=== PATIENT | female | born 1985 | race Caucasian/White ===

== ENCOUNTER 2018-05-06 15:50 | Emergency (ER) | payer BC ==
[2018-05-06 16:03] VITALS: BP 137/81
--- NOTE | 2018-05-06 16:24 | EDM.PDOC ---
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 Is 8 weeks, 5 days according to dates per patient's report. Saw her OB, Dr. Valdez, and had 1st U/S on May 03. She felt a sudden gush of fluid and found it to be a large amount of bright red blood just prior to arrival. She immediately came to the ER for evaluation. 4, Para 2, Sp Ab 1, LC 2. ] Review of systems: As per history of present illness and below otherwise all systems reviewed and negative. Past medical history: As per history of present illness and as reviewed below otherwise noncontributory. Surgical history: As per history of present illness and as reviewed below otherwise noncontributory. Social history: No reported history of drug or alcohol abuse. Family history: As per history of present illness and as reviewed below otherwise noncontributory. Physical exam: HEENT: Atraumatic, normocephalic. Lungs: Clear to auscultation, breath sounds equal bilaterally. Heart: S1S2, regular.. Abdomen: Soft, nondistended, nontender. Genitourinary: Deferred. Rectal: Deferred. Extremities: Atraumatic, negative for cords or calf pain. Neurovascular unremarkable. Neuro: Awake, alert, oriented. Cranial nerves II through XII unremarkable. Cerebellum unremarkable. Motor and sensory unremarkable throughout. Exam nonfocal. Diagnostics: [CBC, qualitative Hcg, quantitative Hcg, ABO/RH, UA w/ microscopy, 1st trimester OB U/S] Impression: [Live intrauterine , approximately 8 weeks 3 days] Plan: [Ultrasound shows a single with heart rate of 181 bpm. Ultrasound age 8 weeks 3 days. 7 mm focal subchorionic hemorrhage is noted on ultrasound. Labs are consistent with an 8 week . Follow-up with obstetrics. Strict return precautions are reviewed with patient.] Definitive disposition and diagnosis as appropriate pending reevaluation and review of above. 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 ED EXAM - Physical Exam Exam: See Below Course - Vital Signs Last Recorded V/S: Last Vital Signs Temp 99.3 F 05/06/18 15:59 Pulse 80 05/06/18 15:59 Resp 18 05/06/18 15:59 BP 137/81 05/06/18 15:59 Pulse Ox 98 05/06/18 15:59 - Orders/Labs/Meds Orders: Active Orders 24 hr Category Date Time Status OB 1st Tri Sgl 1st Gest [US] Stat Exams 05/06/18 16:06 Taken UA W/MICROSCOPIC [URIN] Stat Lab 05/06/18 16:45 Ordered Labs: Laboratory Tests 05/06/18 05/06/18 05/06/18 Range/Units 16:21 16:21 16:21 WBC 9.87 (4.0-11.0) K/uL RBC 4.49 (4.30-5.90) M/uL Hgb 14.1 (12.0-16.0) g/dL Hct 38.0 (36.0-46.0) % MCV 84.6 (80.0-98.0) fL MCH 31.4 (27.0-32.0) pg MCHC 37.1 H (31.0-37.0) g/dL RDW Std Deviation 36.8 (28.0-62.0) fl RDW Coeff of Nanette 12 (11.0-15.0) % Plt Count 242 (150-400) K/uL MPV 8.90 (7.40-12.00) fL Neut % (Auto) 58.2 (48.0-80.0) % Lymph % (Auto) 33.5 (16.0-40.0) % [place] % (Auto) 6.5 (0.0-15.0) % Eos % (Auto) 1.5 (0.0-7.0) % Baso % (Auto) 0.3 (0.0-1.5) % Neut # (Auto) 5.7 (1.4-5.7) K/uL Lymph # (Auto) 3.3 H (0.6-2.4) K/uL [place] # (Auto) 0.6 (0.0-0.8) K/uL Eos # (Auto) 0.2 (0.0-0.7) K/uL Baso # (Auto) 0.0 (0.0-0.1) K/uL Nucleated RBC % 0.0 /100WBC Nucleated RBCs # 0 K/uL HCG, Quant 79302.0 mIU/mL Urine Color Urine Appearance Urine pH (5.0-8.0) Ur Specific [place] (1.001-1.035) Urine Protein (NEGATIVE) mg/dL Urine Glucose (UA) (NEGATIVE) mg/dL Urine Ketones (NEGATIVE) mg/dL Urine Occult Blood (NEGATIVE) Urine Nitrite (NEGATIVE) Urine Bilirubin (NEGATIVE) Urine Urobilinogen (<2.0) EU/dL Ur Leukocyte Esterase (NEGATIVE) Urine RBC (0-2/HPF) Urine WBC (0-5/HPF) Ur Epithelial Cells (NONE-FEW) Urine Bacteria (NEGATIVE) Blood Type A POSITIVE 05/06/18 Range/Units 16:45 WBC (4.0-11.0) K/uL RBC (4.30-5.90) M/uL Hgb (12.0-16.0) g/dL Hct (36.0-46.0) % MCV (80.0-98.0) fL MCH (27.0-32.0) pg MCHC (31.0-37.0) g/dL RDW Std Deviation (28.0-62.0) fl RDW Coeff of Nanette (11.0-15.0) % Plt Count (150-400) K/uL MPV (7.40-12.00) fL Neut % (Auto) (48.0-80.0) % Lymph % (Auto) (16.0-40.0) % [place] % (Auto) (0.0-15.0) % Eos % (Auto) (0.0-7.0) % Baso % (Auto) (0.0-1.5) % Neut # (Auto) (1.4-5.7) K/uL Lymph # (Auto) (0.6-2.4) K/uL [place] # (Auto) (0.0-0.8) K/uL Eos # (Auto) (0.0-0.7) K/uL Baso # (Auto) (0.0-0.1) K/uL Nucleated RBC % /100WBC Nucleated RBCs # K/uL HCG, Quant mIU/mL Urine Color YELLOW Urine Appearance CLEAR Urine pH 6.0 (5.0-8.0) Ur Specific [place] <= 1.005 (1.001-1.035) Urine Protein NEGATIVE (NEGATIVE) mg/dL Urine Glucose (UA) NEGATIVE (NEGATIVE) mg/dL Urine Ketones NEGATIVE (NEGATIVE) mg/dL Urine Occult Blood LARGE H (NEGATIVE) Urine Nitrite NEGATIVE (NEGATIVE) Urine Bilirubin NEGATIVE (NEGATIVE) Urine Urobilinogen 0.2 (<2.0) EU/dL Ur Leukocyte Esterase NEGATIVE (NEGATIVE) Urine RBC 2-5 (0-2/HPF) Urine WBC 0-1 (0-5/HPF) Ur Epithelial Cells FEW (NONE-FEW) Urine Bacteria FEW (NEGATIVE) Blood Type Departure - Departure Time of Disposition: 17:25 Disposition: Home, Self-Care 01 Condition: Good Clinical Impression: Vaginal bleeding during - Discharge Information Instructions: Vaginal Bleeding During , First Trimester Referrals: PCP,None [Primary Care Provider] - Forms: ED Department Discharge Additional Instructions: The following information is given to patients seen in the emergency department who are being discharged to home. This information is to outline your options for follow-up care. We provide all patients seen in our emergency department with a follow-up referral. The need for follow-up, as well as the timing and circumstances, are variable depending upon the specifics of your emergency department visit. If you don't have a primary care physician on staff, we will provide you with a referral. We always advise you to contact your personal physician following an emergency department visit to inform them of the circumstance of the visit and for follow-up with them and/or the need for any referrals to a consulting specialist. The emergency department will also refer you to a specialist when appropriate. This referral assures that you have the opportunity for follow-up care with a specialist. All of these measure are taken in an effort to provide you with optimal care, which includes your follow-up. Under all circumstances we always encourage you to contact your private physician who remains a resource for coordinating your care. When calling for follow-up care, please make the office aware that this follow-up is from your recent emergency room visit. If for any reason you are refused follow-up, please contact the [facility] emergency department at and asked to speak to the emergency department charge nurse. [facility] [address] [place] [id number] Follow-up with your nude model at the clinic stated above on Tuesday. Continue to monitor. Return to ER as needed as discussed. - My Orders Last 24 Hours: My Active Orders 05/06/18 16:06 OB 1st Tri Sgl 1st Gest [US] Stat 05/06/18 16:45 UA W/MICROSCOPIC [URIN] Stat - Assessment/Plan Last 24 Hours: My Active Orders 05/06/18 16:06 OB 1st Tri Sgl 1st Gest [US] Stat 05/06/18 16:45 UA W/MICROSCOPIC [URIN] Stat
--- NOTE | 2018-05-08 10:40 | US ---
EXAM DATE: 05/06/18 PATIENT'S AGE: 32 Patient: LINWOOD VARGHESE Facility: [facility] Site . Site : 1985 Study: US-OB Pelvis [id number]/[id number] 4:53:33 PM Ordering Physician: Doctor Orozco Final Report: INDICATION: Vaginal bleeding in early . TECHNIQUE: Endovaginal OB ultrasound. FINDINGS: A living intrauterine is identified. Average ultrasound age 8 weeks 3 days with JANI of 12/13/2018. heart rate 181 beats per minute. Yolk sac demonstrates a normal appearance. Small 7 mm focus of subchorionic hemorrhage is suggested adjacent to the gestational sac near the cervix. The left ovary was not visualized. The right ovary measures 1.8 x 1.8 x 2.9 cm and demonstrates no dominant cysts. IMPRESSION: 1. Living intrauterine Galarza with ultrasound age 8 weeks 3 days and JANI of 12/13/2018. 2. heart rate 181 beats per minute. 3. Tiny 7 mm focus of subchorionic hemorrhage is suggested at the lower uterine segment near the cervix. Dictated by Odell Galloway MD @ May 06 2018 5:00PM Signed by: Odell Galloway MD @05/06/2018 5:05:10 PM (Electronic Signature) Report Signed by Proxy. MTDD
== END 2018-05-06 17:32 | disposition home or self-care (01) ==
LOC: MW.ED 15:50
DX: O20.9 Hemorrhage in early pregnancy, unspecified (principal); Z3A.08 8 weeks gestation of pregnancy; Z79.899 Other long term (current) drug therapy
CPT/HCPCS: 36415; 76801; 76801-26; 81001; 84702; 85025; 86900; 86901; 99283; 99284-25

== ENCOUNTER 2018-12-05 05:14 | Inpatient (IN) | payer BC ==
[2018-12-05] MEDS ORDERED: Oxytocin/0.9 % Sodium Chloride 30 UNIT/500 ML BAG IV SCH (05:45)
[2018-12-05] MEDS ORDERED: Sodium Chloride 0.9% 10 ML Syringe FLUSH PRN (05:45)
[2018-12-05] MEDS ORDERED: Citric Acid/Sodium Citrate Solution 30 ML Cup PO ONE (05:45)
[2018-12-05] MEDS ORDERED: ceFAZolin 2 GM in Premix Bag 1 BAG IV ONE (05:45)
[2018-12-05] MEDS: Lactated Ringers 1,000 ML IV SCH ×6 (06:00→19:02)
--- NOTE | 2018-12-05 07:29 | PCM.PREANE ---
Preanesthetic Assessment - Anesthesia/Transfusion/Family Hx Anesthesia History: Prior Anesthesia Without Reaction (2 c sections (spinal and epidural), D+C under GA: No anesthesia issues) Family History of Anesthesia Reaction: No Transfusion History: No Prior Transfusion(s) - Review of Systems General: No Symptoms (98kg body weight) Pulmonary: No Symptoms (allergic rhinitis, controlled) Cardiovascular: No Symptoms Gastrointestinal: No Symptoms (mild gerd with ) Neurological: No Symptoms Other: Reports: None - Physical Assessment NPO Status Date: 12/05/18 NPO Status Time: 00:00 Pulse: 72 O2 Sat by Pulse Oximetry: 98 Respiratory Rate: 22 Blood Pressure: 110/58 Temperature: 98.2 C Height: 1.69 m Weight: 97.522 kg ASA Class: 2 Mental Status: Alert & Oriented x3 Airway Class: Mallampati = 1 Dentition: Reports: Normal Dentition Thyro-Mental Finger Breadths: 2 Mouth Opening Finger Breadths: 3 ROM/Head Extension: Full Lungs: Clear to Auscultation, Normal Respiratory Effort Cardiovascular: Regular Rate, Regular Rhythm, No Murmurs - Lab Values: Laboratory Last Values WBC 8.08 K/uL (4.0-11.0) 12/05/18 06:25 RBC 3.66 M/uL (4.30-5.90) L 12/05/18 06:25 Hgb 11.5 g/dL (12.0-16.0) L 12/05/18 06:25 Hct 32.8 % (36.0-46.0) L 12/05/18 06:25 MCV 89.6 fL (80.0-98.0) 12/05/18 06:25 MCH 31.4 pg (27.0-32.0) 12/05/18 06:25 MCHC 35.1 g/dL (31.0-37.0) 12/05/18 06:25 RDW Std Deviation 45.2 fl (28.0-62.0) 12/05/18 06:25 RDW Coeff of Nanette 14 % (11.0-15.0) 12/05/18 06:25 Plt Count 168 K/uL (150-400) 12/05/18 06:25 MPV 9.30 fL (7.40-12.00) 12/05/18 06:25 Nucleated RBC % 0.0 /100WBC 12/05/18 06:25 Nucleated RBCs # 0 K/uL 12/05/18 06:25 Blood Type A POSITIVE 12/05/18 06:25 Antibody Screen NEGATIVE 12/05/18 06:25 - Allergies Allergies/Adverse Reactions: Allergies Allergy/AdvReac Type Severity Reaction Status Date / Time No Known Allergies Allergy Verified 11/29/18 11:58 - Blood Blood Available: Yes Product(s) Available: PRBC - Anesthesia Plan Pre-Op Medication Ordered: Antacids (bicitra pre op) Med Last Dose Date: 12/05/18 Med Last Dose Time: 08:30 - Acknowledgements Anesthesia Type Planned: Spinal (spinal with GA backup. Discussed with patient and . All questions answered. 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 - Past Surgical History Head Surgeries/Procedures: Reports: None Female Surgical History: Reports: Section - SUBSTANCE USE Smoking Status *Q: Former Smoker Recreational Drug Use History: No - HOME MEDS Home Medications: Home Meds Calcium Carbonate [Tums] 1 tab.chew CHEW ASDIRECTED PRN 11/29/18 [History] Cetirizine HCl [Zyrtec] 1 tab PO DAILY 11/29/18 [History] Pnv with Ca,No.72/Iron/Fa [ Vitamin Plus Low Iron] 1 tab PO DAILY [History] - CURRENT (IN HOUSE) MEDS Current Meds: Current Medications Lactated Ringer's (Ringers, Lactated) 1,000 mls @ 500 mls/hr IV BOLUS CARLOS Last Admin: 12/05/18 06:51 Dose: 999 mls/hr Oxytocin/Sodium Chloride (Oxytocin 30 Unit/500 Ml-Ns) 30 unit in 500 mls @ 250 mls/hr IV TITRATE CARLOS Sodium Chloride (Saline Flush) 10 ml FLUSH ASDIRECTED PRN PRN Reason: Keep Vein Open Last Admin: 12/05/18 05:55 Dose: 10 ml Discontinued Medications Citric Acid/Sodium Citrate (Bicitra Solution) 30 ml PO ONETIME ONE Stop: 12/05/18 05:46 Cefazolin Sodium/Dextrose 2 gm (/ Premix) 50 mls @ 100 mls/hr IV ONETIME ONE Stop: 12/05/18 06:14
[2018-12-05] MEDS ORDERED: Oxytocin 10 Units/1 ML SDV ONE ×3 (07:42→07:43)
[2018-12-05] MEDS ORDERED: Phenylephrine/Normal Saline 100 MCG/ML 10 ML Syringe ONE (07:43)
[2018-12-05] MEDS ORDERED: Morphine PF 10 MG/10 ML SDV ONE (07:47)
[2018-12-05] MEDS ORDERED: Methylergonovine 0.2 MG/1 ML Amp ONE (07:51)
[2018-12-05] MEDS ORDERED: Octyl 2-Cyanoacrylate 1 Tube ONE (07:54)
[2018-12-05] MEDS ORDERED: Ondansetron 4 MG/2 ML SDV ONE (08:44)
[2018-12-05] MEDS ORDERED: Nalbuphine 10 MG/1 ML Vial IVPUSH PRN (09:12)
[2018-12-05] MEDS ORDERED: Meperidine PF 50 MG/ML Syringe IVPUSH SCH (09:15)
--- NOTE | 2018-12-05 09:24 | PCM.OPNOTE ---
- General Post-Op/Procedure Note Date of Surgery/Procedure: 12/05/18 Operative Procedure(s): repeat low transverse , bilateral salpingectomy Findings: normal appearing tubes and ovaries. 4 cm intramural fibroid anterior uterus. Liveborn male 9/10 weight 4040 grams. Pre Op Diagnosis: 39 weeks, previous , desires sterilization Post-Op Diagnosis: Same Anesthesia Technique: Spinal Primary Surgeon: Rafaela Valdez Anesthesia Provider: Wu Craft Pathology: fallopian tubes Fluid Replacement, Intraop: 1,250 Output, Urine Amount: 280 EBL in mLs: 450 Complications: None Known Condition: Good
[2018-12-05] MEDS ORDERED: Acetaminophen/oxyCODONE 325-5 MG Tab PO PRN (09:26)
[2018-12-05] MEDS ORDERED: Lanolin 100% Cream 7 GM Tube TOP PRN (09:26)
[2018-12-05] MEDS ORDERED: diphenhydrAMINE 50 MG/ML SDV IVPUSH PRN (09:26)
[2018-12-05] MEDS ORDERED: Bisacodyl 10 MG Supp RECTAL PRN (09:26)
[2018-12-05] MEDS: Ketorolac 30 MG/ML SDV IVPUSH SCH ×3 (09:33→21:07)
--- NOTE | 2018-12-05 09:38 | PCM.POSTAN ---
POST ANESTHESIA ASSESSMENT - MENTAL STATUS Mental Status: Alert, Oriented - RESPIRATORY Respiratory Status: Respiratory Rate WNL, Airway Patent, O2 Saturation Stable - CARDIOVASCULAR CV Status: Pulse Rate WNL, Blood Pressure Stable - GASTROINTESTINAL GI Status: No Symptoms - POST OP HYDRATION Hydration Status: Adequate & Stable
[2018-12-05] MEDS: Ondansetron 4 MG/2 ML SDV IVPUSH PRN ×2 (14:05→19:06)
--- NOTE | 2018-12-05 15:08 | OR ---
SURGEON: Rafaela Valdez M.D. DATE OF PROCEDURE: 12/05/2018 PREOPERATIVE DIAGNOSES: 1. Thirty-nine week intrauterine . 2. Prior deliveries x2. 3. Desires permanent sterilization. POSTOPERATIVE DIAGNOSES: 1. Thirty-nine week intrauterine . 2. Prior deliveries x2. 3. Desires permanent sterilization. PROCEDURE: Repeat low-transverse section with bilateral salpingectomy. ANESTHESIA: Spinal. ESTIMATED BLOOD LOSS: 450 mL. FLUIDS: 1200 mL crystalloid. FINDINGS: Liveborn male scores 9 and 10, weighing 4040 g. Normal-appearing tubes and ovaries. There was an anterior 4 cm intramural fibroid. COMPLICATIONS: None known. DISPOSITION: Stable to recovery. BRIEF HISTORY: This is a 33-year-old female, she presents at 39 weeks for her 3rd section. Throughout the , she has requested permanent sterilization. She has declined all other forms of contraception including long-acting reversible contraception. This has been approved through the Ethics Committee at [facility] due to increased risk of future pregnancies related to morbid implantation of the placenta, placing both mother and fetus at risk for morbidity or mortality. She understands that this is irreversible and understands risk of regret. Surgical risks otherwise were discussed including bleeding, infection, injury to bowel, bladder, blood vessels, ureters, other organs, risk of thromboembolic event, and risk of anesthesia. Understanding all these risks, she does desire to proceed. DESCRIPTION OF PROCEDURE: With the patient in left tilt position under adequate spinal analgesia, the abdomen was prepped with chlorhexidine and draped in the usual fashion for abdominal surgery. SCDs were in place. Waddell catheter had been placed and she received 2 g of Ancef IV. After documentation of appropriate analgesia, an appropriate time-out was held. The prior cicatrix was excised and the transverse curvilinear incision was carried through the subcutaneous tissue. The fascia, which was scored transversely in the midline. The fascial incision was extended laterally using curved Johnson scissors. The fascia was elevated from the underlying rectus muscles using sharp and blunt dissection. The hemostat was then used to elevate the peritoneum, which was entered sharply. A finger was used to enter the peritoneal cavity. There were no adhesions anteriorly, therefore the incision was extended cephalad and caudad using sharp and blunt dissection. The Gabriel O retractor was placed. The visceroperitoneum over the lower uterine segment was incised to develop an adequate bladder flap. A transverse curvilinear incision was made over the lower uterine segment with a scalpel. A finger was used to extend the incision and Allis clamp was used to rupture membranes, clear fluid was noted. The head was delivered via the uterine incision with fundal pressure without difficulty. The was delivered, bulb suctioned by nose and mouth. Nuchal and leg cord were reduced and the cord was doubly clamped and cut and the was handed to the nurse in attendance at delivery. The infant was a liveborn male, scores 9 and 10, weight 4040 g. Cord blood was collected for cord ABGs as well as routine cord blood sampling. Pitocin was initiated after delivery of the and the placenta was removed by manual extraction. The uterus was cleaned with a dry laparotomy tape. The cervix was opened with a ring forceps. The uterine incision was closed with a running lock suture of 0 Polysorb followed by an imbricating layer of 0 Polysorb. The paracolic gutters and posterior cul-de-sac were cleaned with wet laparotomy tape. Tubes and ovaries were inspected. I confirmed the patient's desire for permanent sterilization. The fimbria of the tube was grasped with a Cinda. The ligament between the fimbria and the ovary was ligated using the Harmonic Daron and proceeding proximally along the mesosalpinx to the uterine cornu where the tube was transected. This was repeated on the opposite side. The mesosalpinx was inspected for hemostasis and it was completely hemostatic. The uterine incision was again inspected for hemostasis and any areas of bleeding that were noted were cauterized and the uterine incision was completely hemostatic. The Gabriel O retractor was removed. There was a final inspection for hemostasis and hemostasis was confirmed. Therefore, the rectus muscle and peritoneum were loosely approximated in the midline using a running mattress suture of 0 Polysorb. The posterior aspect of the fascia was inspected and any areas of bleeding that were noted were cauterized. The fascial incision was closed with a running suture of 0 Polysorb. Subcutaneous tissue was irrigated. Any areas of bleeding that were noted were cauterized. The deep subcutaneous tissue was reapproximated with a 3- 0 plain and a running subcuticular suture of 3-0 Monocryl was utilized to reapproximate the skin followed by Dermabond. Final sponge, needle, and instrument counts were reported as correct. There were no known complications. is in nursery in good condition. Mother remains in recovery in good condition. TULIO LORENZO /[id number]
[2018-12-05] MEDS: Docusate Sodium 100 MG Cap PO SCH (22:05)
[2018-12-06] MEDS: Ketorolac 30 MG/ML SDV IVPUSH SCH ×2 (03:18→09:17)
--- NOTE | 2018-12-06 06:51 | PCM48HPAN ---
Post Anesthesia Note - EVALUATION WITHIN 48HRS OF ANESTHETIC Vital Signs in Normal Range: Yes Patient Participated in Evaluation: Yes Respiratory Function Stable: Yes Airway Patent: Yes Cardiovascular Function Stable: Yes Hydration Status Stable: Yes Pain Control Satisfactory: Yes Nausea and Vomiting Control Satisfactory: Yes Mental Status Recovered: Yes Pulse Rate: 72 Resp Rate: 16 Blood Pressure: 110/58
--- NOTE | 2018-12-06 09:07 | PCM.PNPP ---
- General Info Date of Service: 12/06/18 Admission Dx/Problem (Free Text): Subjective Update: Tolerating diet, pain well controlled, minimal lochia, ambulating. Functional Status: Reports: Pain Controlled, Tolerating Diet, Ambulating, Urinating - Review of Systems General: Reports: No Symptoms HEENT: Reports: No Symptoms Pulmonary: Reports: No Symptoms Cardiovascular: Reports: No Symptoms Gastrointestinal: Reports: No Symptoms Genitourinary: Reports: No Symptoms Musculoskeletal: Reports: No Symptoms Skin: Reports: No Symptoms Neurological: Reports: No Symptoms Psychiatric: Reports: No Symptoms - Patient Data Vital Signs - Most Recent: Last Vital Signs Temp 36.4 C 12/06/18 03:23 Pulse 72 12/06/18 06:51 Resp 16 12/06/18 06:51 BP 110/58 L 12/06/18 06:51 Pulse Ox 95 12/06/18 06:10 Weight - Most Recent: 97.522 kg I&O - Last 24 Hours: Intake & Output 12/05/18 12/06/18 12/06/18 22:59 06:59 14:59 Intake Total 500 2240 Output Total 245 675 Balance 255 1565 Lab Results - Last 24 Hours: Laboratory Results - last 24 hr 12/05/18 12/06/18 Range/Units 08:25 05:03 Hgb 10.2 L (12.0-16.0) g/dL Hct 29.9 L (36.0-46.0) % Cord ABG pH 7.328 (7.18-7.38) Cord ABG Base Excess -3 (-10--2) Cord VBG pH 7.405 (7.25-7.45) Cord VBG Base Excess -3 (-10--2) Med Orders - Current: Current Medications Bisacodyl (Dulcolax) 10 mg RECTAL ONETIME PRN PRN Reason: Constipation Diphenhydramine HCl (Benadryl) 25 mg IVPUSH Q6H PRN PRN Reason: Itching or Nausea Docusate Sodium (Colace) 100 mg PO BID [facility] Last Admin: 12/05/18 22:05 Dose: Not Given Emollient Ointment (Lansinoh Hpa) 0 gm TOP ASDIRECTED PRN PRN Reason: Sore Nipples Lactated Ringer's (Ringers, Lactated) 1,000 mls @ 125 mls/hr IV ASDIRECTED [facility] Last Admin: 12/05/18 19:02 Dose: 125 mls/hr Ibuprofen (Motrin) 800 mg PO Q8H PRN PRN Reason: mild pain or fever Ketorolac Tromethamine (Toradol) 30 mg IVPUSH Q6H [facility] Stop: 12/06/18 09:31 Last Admin: 12/06/18 03:18 Dose: 30 mg Meperidine HCl (Demerol) 12.5 mg IVPUSH .ONCE [facility] Nalbuphine HCl (Nubain) 5 mg IVPUSH .ONCE PRN PRN Reason: Pruritis Stop: 12/06/18 23:59 Ondansetron HCl (Zofran) 4 mg IVPUSH Q4H PRN PRN Reason: Nausea/Vomiting Last Admin: 12/05/18 19:06 Dose: 4 mg Oxycodone/Acetaminophen (Percocet 325-5 Mg) 1 tab PO Q4H PRN PRN Reason: Pain (moderate 4-6) Oxycodone/Acetaminophen (Percocet 325-5 Mg) 2 tab PO Q4H PRN PRN Reason: Pain (moderate 4-6) Discontinued Medications Citric Acid/Sodium Citrate (Bicitra Solution) 30 ml PO ONETIME ONE Stop: 12/05/18 05:46 Last Admin: 12/05/18 08:04 Dose: 30 ml Cefazolin Sodium/Dextrose 2 gm (/ Premix) 50 mls @ 100 mls/hr IV ONETIME ONE Stop: 12/05/18 06:14 Last Admin: 12/05/18 20:38 Dose: Not Given Lactated Ringer's (Ringers, Lactated) 1,000 mls @ 500 mls/hr IV BOLUS [facility] Last Admin: 12/05/18 07:43 Dose: 400 mls/hr Oxytocin/Sodium Chloride (Oxytocin 30 Unit/500 Ml-Ns) 30 unit in 500 mls @ 250 mls/hr IV TITRATE [facility] Methylergonovine Maleate (Methergine) Confirm Administered Dose 0.2 mg .ROUTE .STK-MED ONE Stop: 12/05/18 07:52 Morphine Sulfate (Duramorph Pf) Confirm Administered Dose 10 mg .ROUTE .STK-MED ONE Stop: 12/05/18 07:48 Octyl Cyanoacrylate (Dermabond Advance) Confirm Administered Dose 1 applic .ROUTE .STK-MED ONE Stop: 12/05/18 07:55 Ondansetron HCl (Zofran) Confirm Administered Dose 4 mg .ROUTE .STK-MED ONE Stop: 12/05/18 08:45 Oxytocin (Pitocin) Confirm Administered Dose 10 unit .ROUTE .STK-MED ONE Stop: 12/05/18 07:43 Oxytocin (Pitocin) Confirm Administered Dose 10 unit .ROUTE .STK-MED ONE Stop: 12/05/18 07:43 Oxytocin (Pitocin) Confirm Administered Dose 10 unit .ROUTE .STK-MED ONE Stop: 12/05/18 07:44 Phenylephrine HCl (Phenylephrine In Ns 100 Mcg/Ml) Confirm Administered Dose 1 mg .ROUTE .STK-MED ONE Stop: 12/05/18 07:44 Sodium Chloride (Saline Flush) 10 ml FLUSH ASDIRECTED PRN PRN Reason: Keep Vein Open Last Admin: 12/05/18 05:55 Dose: 10 ml - Infant Interaction Infant Disposition, : [place] to Nursery Support Person: - Recovery Exam Fundal Tone: Firm Fundal Level: At Umbilicus Fundal Placement: Midline Lochia Amount: Scant, Small Lochia Color: Rubra/Red Perineum Description: Intact, Minimal Bruising/Swelling Episiotomy/Laceration: None Bladder Status: Indwelling Catheter in Place Urinary Elimination: Indwelling Catheter - Exam General: Alert, Oriented HEENT: Pupils Equal Neck: Supple Lungs: Clear to Auscultation, Normal Respiratory Effort Cardiovascular: Regular Rate, Regular Rhythm GI/Abdominal Exam: Normal Bowel Sounds, Soft, Non-Tender, No Organomegaly, No Distention Extremities: Normal Inspection, Non-Tender, No Pedal Edema Skin: Warm, Dry, Intact Wound/Incisions: Dressing Dry and Intact Neurological: No New Focal Deficit Psy/Mental Status: Alert, Normal Affect, Normal Mood - Problem List & Annotations (1) delivery delivered SNOMED Code(s): 765884373 Code(s): O82 - ENCOUNTER FOR DELIVERY WITHOUT INDICATION Status: Acute Current Visit: Yes (2) Previous section complicating , with delivery SNOMED Code(s): 412367520 Code(s): O34.219 - MATERNAL CARE FOR UNSP TYPE SCAR FROM PREVIOUS DEL Status: Acute Current Visit: Yes - Problem List Review Problem List Initiated/Reviewed/Updated: Yes - My Orders Last 24 Hours: My Active Orders 12/05/18 09:26 Patient Status [ADT] Routine Ambulate [RC] PER UNIT ROUTINE Communication Order [RC] PER UNIT ROUTINE Communication Order [RC] PER UNIT ROUTINE Communication Order [RC] Per Unit Routine May Shower [RC] ASDIRECTED Notify Provider Vital Signs [RC] ASDIRECTED RT Incentive Spirometry [RC] Q2HWA Vital Signs [RC] PER UNIT ROUTINE Acetaminophen/oxyCODONE [Percocet 325-5 MG] 1 tab PO Q4H PRN Acetaminophen/oxyCODONE [Percocet 325-5 MG] 2 tab PO Q4H PRN Bisacodyl [Dulcolax] 10 mg RECTAL ONETIME PRN Ibuprofen [Motrin] 800 mg PO Q8H PRN Lanolin [Lansinoh HPA] See Dose Instructions TOP ASDIRECTED PRN Ondansetron [Zofran] 4 mg IVPUSH Q4H PRN diphenhydrAMINE [Benadryl] 25 mg IVPUSH Q6H PRN Abdominal Binder [OM.PC] Urgent Assess Lochia [WOMSER] Per Unit Routine Assess Uterine Involution [WOMSER] Per Unit Routine Breast Pump [WOMSER] Per Unit Routine Peripheral IV Discontinue [OM.PC] Routine Sequential Compression Device [OM.PC] Per Unit Routine Resuscitation Status Routine 12/05/18 09:27 Notify Provider Intake and Out [RC] ASDIRECTED 12/05/18 09:30 Ketorolac [Toradol] 30 mg IVPUSH Q6H Lactated Ringers [Ringers, Lactated] 1,000 ml IV ASDIRECTED 12/05/18 21:00 Docusate Sodium [Colace] 100 mg PO BID 12/05/18 Dinner Regular Diet [DIET] - Assessment Assessment:: POD#1 after repeat with bilateral salpingectomy. Stable, minimal lochia, pain well controlled. - Plan Plan:: Continue postop care.
[2018-12-06] MEDS: Docusate Sodium 100 MG Cap PO SCH ×2 (09:19→20:49)
[2018-12-06] MEDS: Ibuprofen 800 MG Tab PO PRN (15:16)
[2018-12-06] MEDS: Acetaminophen/oxyCODONE 325-5 MG Tab PO PRN ×2 (16:20→22:58)
[2018-12-07] MEDS: Acetaminophen/oxyCODONE 325-5 MG Tab PO PRN ×2 (04:31→12:06)
[2018-12-07] MEDS: Ibuprofen 800 MG Tab PO PRN ×2 (04:33→12:05)
--- NOTE | 2018-12-07 08:08 | PCM.PNPP ---
<Celeste Coronado - Last Filed: 12/07/18 08:06> - General Info Date of Service: 12/07/18 Functional Status: Reports: Pain Controlled, Tolerating Diet, Ambulating, Urinating - Review of Systems General: Denies: Fever, Weakness Pulmonary: Denies: Shortness of Breath, Pleuritic Chest Pain, Cough Cardiovascular: Denies: Chest Pain, Palpitations, Dyspnea on Exertion Gastrointestinal: Denies: Abdominal Pain Genitourinary: Denies: Dysuria - General Info Date of Service: 12/07/18 - Patient Data Vital Signs - Most Recent: Last Vital Signs Temp 36.9 C 12/07/18 04:15 Pulse 84 12/07/18 04:15 Resp 16 12/07/18 04:15 BP 117/64 12/07/18 04:15 Pulse Ox 99 12/07/18 04:15 Weight - Most Recent: 97.522 kg Med Orders - Current: Current Medications Bisacodyl (Dulcolax) 10 mg RECTAL ONETIME PRN PRN Reason: Constipation Diphenhydramine HCl (Benadryl) 25 mg IVPUSH Q6H PRN PRN Reason: Itching or Nausea Docusate Sodium (Colace) 100 mg PO BID [facility] Last Admin: 12/06/18 20:49 Dose: 100 mg Emollient Ointment (Lansinoh Hpa) 0 gm TOP ASDIRECTED PRN PRN Reason: Sore Nipples Lactated Ringer's (Ringers, Lactated) 1,000 mls @ 125 mls/hr IV ASDIRECTED [facility] Last Admin: 12/05/18 19:02 Dose: 125 mls/hr Ibuprofen (Motrin) 800 mg PO Q8H PRN PRN Reason: mild pain or fever Last Admin: 12/07/18 04:33 Dose: 800 mg Meperidine HCl (Demerol) 12.5 mg IVPUSH .ONCE [facility] Ondansetron HCl (Zofran) 4 mg IVPUSH Q4H PRN PRN Reason: Nausea/Vomiting Last Admin: 12/05/18 19:06 Dose: 4 mg Oxycodone/Acetaminophen (Percocet 325-5 Mg) 1 tab PO Q4H PRN PRN Reason: Pain (moderate 4-6) Last Admin: 12/07/18 04:31 Dose: 1 tab Oxycodone/Acetaminophen (Percocet 325-5 Mg) 2 tab PO Q4H PRN PRN Reason: Pain (moderate 4-6) Discontinued Medications Citric Acid/Sodium Citrate (Bicitra Solution) 30 ml PO ONETIME ONE Stop: 12/05/18 05:46 Last Admin: 12/05/18 08:04 Dose: 30 ml Cefazolin Sodium/Dextrose 2 gm (/ Premix) 50 mls @ 100 mls/hr IV ONETIME ONE Stop: 12/05/18 06:14 Last Admin: 12/05/18 20:38 Dose: Not Given Lactated Ringer's (Ringers, Lactated) 1,000 mls @ 500 mls/hr IV BOLUS [facility] Last Admin: 12/05/18 07:43 Dose: 400 mls/hr Oxytocin/Sodium Chloride (Oxytocin 30 Unit/500 Ml-Ns) 30 unit in 500 mls @ 250 mls/hr IV TITRATE [facility] Ketorolac Tromethamine (Toradol) 30 mg IVPUSH Q6H [facility] Stop: 12/06/18 09:31 Last Admin: 12/06/18 09:17 Dose: 30 mg Methylergonovine Maleate (Methergine) Confirm Administered Dose 0.2 mg .ROUTE .STK-MED ONE Stop: 12/05/18 07:52 Morphine Sulfate (Duramorph Pf) Confirm Administered Dose 10 mg .ROUTE .STK-MED ONE Stop: 12/05/18 07:48 Nalbuphine HCl (Nubain) 5 mg IVPUSH .ONCE PRN PRN Reason: Pruritis Stop: 12/06/18 23:59 Octyl Cyanoacrylate (Dermabond Advance) Confirm Administered Dose 1 applic .ROUTE .STK-MED ONE Stop: 12/05/18 07:55 Ondansetron HCl (Zofran) Confirm Administered Dose 4 mg .ROUTE .STK-MED ONE Stop: 12/05/18 08:45 Oxytocin (Pitocin) Confirm Administered Dose 10 unit .ROUTE .STK-MED ONE Stop: 12/05/18 07:43 Oxytocin (Pitocin) Confirm Administered Dose 10 unit .ROUTE .STK-MED ONE Stop: 12/05/18 07:43 Oxytocin (Pitocin) Confirm Administered Dose 10 unit .ROUTE .STK-MED ONE Stop: 12/05/18 07:44 Phenylephrine HCl (Phenylephrine In Ns 100 Mcg/Ml) Confirm Administered Dose 1 mg .ROUTE .STK-MED ONE Stop: 12/05/18 07:44 Sodium Chloride (Saline Flush) 10 ml FLUSH ASDIRECTED PRN PRN Reason: Keep Vein Open Last Admin: 12/05/18 05:55 Dose: 10 ml - Infant Interaction Disposition, : at Bedside Interaction: Holding Feeding: Bottle Fed Infant Support Person: - Recovery Exam Fundal Tone: Firm Fundal Level: 1 Fingerbreadths Below Umbilicus Fundal Placement: Midline Lochia Amount: Scant Lochia Color: Rubra/Red Perineum Description: Intact, Minimal Bruising/Swelling Episiotomy/Laceration: None Bladder Status: Nonpalpable, Voiding Urinary Elimination: Voided - Exam General: Alert, Oriented Neck: Supple Lungs: Clear to Auscultation, Normal Respiratory Effort Cardiovascular: Regular Rate, Regular Rhythm GI/Abdominal Exam: Normal Bowel Sounds, Soft, Non-Tender, No Distention, No Mass Extremities: Normal Inspection, Non-Tender, Normal Capillary Refill, Pedal Edema (trace) Skin: Warm, Dry, Intact - Problem List & Annotations (1) delivery delivered SNOMED Code(s): 421720076 Code(s): O82 - ENCOUNTER FOR DELIVERY WITHOUT INDICATION Status: Acute Current Visit: Yes - Problem List Review Problem List Initiated/Reviewed/Updated: Yes - Assessment Assessment:: POD#2 after repeat with bilateral salpingectomy. Stable, minimal lochia, pain well controlled. - Plan Plan:: Discharge home today. Pelvic rest for 6 weeks. Rx for Percocet to use as needed for pain. Instructed patient to call if she develops fever greater than 101 or bleeding though a large pad an hour. No lifting greater than 10lbs for 6 weeks. F/U with [facility] in 2 and 6 weeks <Rafaela Valdez - Last Filed: 12/07/18 08:38> - Patient Data Vital Signs - Most Recent: Last Vital Signs Temp 36.2 C 12/07/18 07:45 Pulse 84 12/07/18 04:15 Resp 15 12/07/18 07:45 BP 110/54 L 12/07/18 07:45 Pulse Ox 97 12/07/18 07:45 Med Orders - Current: Current Medications Bisacodyl (Dulcolax) 10 mg RECTAL ONETIME PRN PRN Reason: Constipation Diphenhydramine HCl (Benadryl) 25 mg IVPUSH Q6H PRN PRN Reason: Itching or Nausea Docusate Sodium (Colace) 100 mg PO BID [facility] Last Admin: 12/06/18 20:49 Dose: 100 mg Emollient Ointment (Lansinoh Hpa) 0 gm TOP ASDIRECTED PRN PRN Reason: Sore Nipples Lactated Ringer's (Ringers, Lactated) 1,000 mls @ 125 mls/hr IV ASDIRECTED [facility] Last Admin: 12/05/18 19:02 Dose: 125 mls/hr Ibuprofen (Motrin) 800 mg PO Q8H PRN PRN Reason: mild pain or fever Last Admin: 12/07/18 04:33 Dose: 800 mg Meperidine HCl (Demerol) 12.5 mg IVPUSH .ONCE [facility] Ondansetron HCl (Zofran) 4 mg IVPUSH Q4H PRN PRN Reason: Nausea/Vomiting Last Admin: 12/05/18 19:06 Dose: 4 mg Oxycodone/Acetaminophen (Percocet 325-5 Mg) 1 tab PO Q4H PRN PRN Reason: Pain (moderate 4-6) Last Admin: 12/07/18 04:31 Dose: 1 tab Oxycodone/Acetaminophen (Percocet 325-5 Mg) 2 tab PO Q4H PRN PRN Reason: Pain (moderate 4-6) Discontinued Medications Citric Acid/Sodium Citrate (Bicitra Solution) 30 ml PO ONETIME ONE Stop: 12/05/18 05:46 Last Admin: 12/05/18 08:04 Dose: 30 ml Cefazolin Sodium/Dextrose 2 gm (/ Premix) 50 mls @ 100 mls/hr IV ONETIME ONE Stop: 12/05/18 06:14 Last Admin: 12/05/18 20:38 Dose: Not Given Lactated Ringer's (Ringers, Lactated) 1,000 mls @ 500 mls/hr IV BOLUS [facility] Last Admin: 12/05/18 07:43 Dose: 400 mls/hr Oxytocin/Sodium Chloride (Oxytocin 30 Unit/500 Ml-Ns) 30 unit in 500 mls @ 250 mls/hr IV TITRATE [facility] Ketorolac Tromethamine (Toradol) 30 mg IVPUSH Q6H [facility] Stop: 12/06/18 09:31 Last Admin: 12/06/18 09:17 Dose: 30 mg Methylergonovine Maleate (Methergine) Confirm Administered Dose 0.2 mg .ROUTE .STK-MED ONE Stop: 12/05/18 07:52 Morphine Sulfate (Duramorph Pf) Confirm Administered Dose 10 mg .ROUTE .STK-MED ONE Stop: 12/05/18 07:48 Nalbuphine HCl (Nubain) 5 mg IVPUSH .ONCE PRN PRN Reason: Pruritis Stop: 12/06/18 23:59 Octyl Cyanoacrylate (Dermabond Advance) Confirm Administered Dose 1 applic .ROUTE .STK-MED ONE Stop: 12/05/18 07:55 Ondansetron HCl (Zofran) Confirm Administered Dose 4 mg .ROUTE .STK-MED ONE Stop: 12/05/18 08:45 Oxytocin (Pitocin) Confirm Administered Dose 10 unit .ROUTE .STK-MED ONE Stop: 12/05/18 07:43 Oxytocin (Pitocin) Confirm Administered Dose 10 unit .ROUTE .STK-MED ONE Stop: 12/05/18 07:43 Oxytocin (Pitocin) Confirm Administered Dose 10 unit .ROUTE .STK-MED ONE Stop: 12/05/18 07:44 Phenylephrine HCl (Phenylephrine In Ns 100 Mcg/Ml) Confirm Administered Dose 1 mg .ROUTE .STK-MED ONE Stop: 12/05/18 07:44 Sodium Chloride (Saline Flush) 10 ml FLUSH ASDIRECTED PRN PRN Reason: Keep Vein Open Last Admin: 12/05/18 05:55 Dose: 10 ml - Problem List & Annotations (1) delivery delivered SNOMED Code(s): 151761083 Code(s): O82 - ENCOUNTER FOR DELIVERY WITHOUT INDICATION Status: Acute Current Visit: Yes (2) Previous section complicating , with delivery SNOMED Code(s): 152882764 Code(s): O34.219 - MATERNAL CARE FOR UNSP TYPE SCAR FROM PREVIOUS DEL Status: Acute Current Visit: Yes - Problem List Review Problem List Initiated/Reviewed/Updated: Yes - Plan Plan:: Patient was seen and examined by me and I agree with above.
[2018-12-07 08:14] VITALS: BP 110/54
[2018-12-07] MEDS: Docusate Sodium 100 MG Cap PO SCH (09:12)
== END 2018-12-07 12:15 | disposition home or self-care (01) | DRG 540 ==
LOC: MW.OB 05:14
PROVIDERS: ADMIT Obstetrics & Gynecology; ATTEND Obstetrics & Gynecology
PROC: 10D00Z1 Extraction of Products of Conception, Low, Open Approach (ICD-10-PCS; principal; 2018-12-05)
PROC: 0UT70ZZ Resection of Bilateral Fallopian Tubes, Open Approach (ICD-10-PCS; 2018-12-05)
PROC: 6A550ZT Pheresis of Cord Blood Stem Cells, Single (ICD-10-PCS; 2018-12-05)
DX: O34.211 Maternal care for low transverse scar from previous cesarean delivery (principal); O69.81X0 Labor and delivery complicated by cord around neck, without compression, not applicable or unspecified; Z3A.39 39 weeks gestation of pregnancy; Z37.0 Single live birth
CPT/HCPCS: 36415; 59025; 82803; 85014; 85018; 85027; 86850; 86900; 86901; A9270-GY; J1885; J2210; J2270; J2370; J2405; J2590; J7120

== ENCOUNTER 2021-12-07 17:09 | Emergency (ER) | payer BC ==
--- NOTE | 2021-12-07 17:23 | PCM.EKG ---
#1 Interpretation EKG Interpretation Comments: EKG performed 12/07/2021 at 5:12 PM shows a sinus rhythm with a heart rate 75 SC 195 QT duration 416 axis 71. There is late transition R wave in the precordium. Impression no acute injury
[2021-12-07] MEDS ORDERED: Aspirin 81 MG Tab.Chew PO ONE (17:39)
[2021-12-07] MEDS ORDERED: Sodium Chloride 0.9% 10 ML Syringe FLUSH PRN (17:39)
[2021-12-07] MEDS ORDERED: Sodium Chloride 0.9% 2.5 ML Syringe FLUSH PRN (17:39)
--- NOTE | 2021-12-07 17:42 | EDM.PDOC ---
ED HPI GENERAL MEDICAL PROBLEM - General Chief Complaint: Chest Pain Stated Complaint: CHEST PAINS Time Seen by Provider: 12/07/21 17:35 - History of Present Illness INITIAL COMMENTS - FREE TEXT/NARRATIVE: History of present illness: [] This pleasant 36-year-old female who lives at home with her and children reports that she had symptoms began this morning. She has chest pain, cough, feels tightness in her chest, fever alternating with chills, she is diaphoretic when she has the fever. Her pain is pressure in anterior chest is moderately severe worse when she lays down. It is not worse with exertion. It is associated with shortness of breath and cough. The patient has body aches as well. The family is not vaccinated against Covid or flu. The patient is a smoker. She is not treated for diabetes hypertension high cholesterol. She has negative family history of coronary vessel disease or stroke and a negative personal and family history of thromboembolic disease. Review of systems: As per history of present illness and below otherwise all systems reviewed and negative. Past medical history: As per history of present illness and as reviewed below otherwise noncontributory. Surgical history: As per history of present illness and as reviewed below otherwise noncontributory. Social history: No reported history of drug or alcohol abuse. Family history: As per history of present illness and as reviewed below otherwise noncontributory. Physical exam: Constitutional - well developed, well-nourished and in no acute distress HEENT - normocephalic, no evidence of trauma - external nose and mouth normal - no mass in neck and no JVD - mucosae moist EYES - full EOM, PERRL, no icterus - no evidence of inflammation, injection, or drainage Respiratory - no respiratory distress, equal bilateral expansion, lungs clear to auscultation and no abnormal lung sounds Cardiovascular - Regular Rhythm with S1 and S2 appreciated and no murmur, gallop or rub. GI - abdomen soft without distension or organomegaly - normal bowel sounds - no guard or rebound Musculoskeletal no gross deformity of long bones or joints - no tenderness, swelling or edema Neurologic - Alert and oriented times four - CN II-XII grossly intact - motor sensory and coordination symmetrically normal Psychiatric - appropriate mood and affect with normal thought content Hematologic - No petechiae or purpura - mucosa appropriate color and sclera not pale - normal nail bed color and refill Integument - no rash or evidence of trauma - normal turgor Diagnostics: [] Therapeutics: [] Impression: [] Plan: [] Definitive disposition and diagnosis as appropriate pending reevaluation and review of above. Chest Pain Score (Numeric/FACES): 9 - Related Data Allergies Allergy/AdvReac Type Severity Reaction Status Date / Time No Known Allergies Allergy Verified 12/07/21 17:28 Home Meds: Home Meds Calcium Carbonate [Tums] 1 tab.chew CHEW ASDIRECTED PRN 11/29/18 [History] Cetirizine HCl [Zyrtec] 1 tab PO DAILY 11/29/18 [History] Pnv,Calcium 72/Iron/Folic Acid [ Vitamin Plus Low Iron] 1 tab PO DAILY 11/29/18 [History] Acetaminophen/oxyCODONE [Percocet 325-5 MG] 1 tab PO Q6H PRN #30 tablet 12/07/18 [Rx] Past Medical History - Past Health History Medical/Surgical History: Denies Medical/Surgical History HEENT History: Reports: Allergic Rhinitis Other Gastrointestinal History: occasional heartburn during Genitourinary History: Reports: None 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 ED EXAM, GENERAL - Physical Exam Exam: See Below Free Text/Narrative:: My physical exam is in the HPI Course - Vital Signs Last Recorded V/S: Last Vital Signs Temp 36.2 C 12/07/21 17:21 Pulse 84 12/07/21 17:21 Resp 20 12/07/21 17:21 BP 126/83 12/07/21 17:21 Pulse Ox 98 12/07/21 17:21 - Orders/Labs/Meds Orders: Active Orders 24 hr Category Date Time Status UA W/SANDRA RFLX IF INDICATED [URIN] Stat Lab 12/07/21 17:39 Ordered Sodium Chloride 0.9% [Saline Flush] Med 12/07/21 17:39 Active 10 ml FLUSH ASDIRECTED PRN Sodium Chloride 0.9% [Saline Flush] Med 12/07/21 17:39 Active 2.5 ml FLUSH ASDIRECTED PRN Saline Lock Insert [OM.PC] Stat Oth 12/07/21 17:39 Ordered Medication Orders Sodium Chloride (Sodium Chloride 0.9% 10 Ml Syringe) 10 ml FLUSH ASDIRECTED PRN PRN Reason: Keep Vein Open Last Admin: 12/07/21 17:45 Dose: 10 ml Documented by: JAMIE Sodium Chloride (Sodium Chloride 0.9% 2.5 Ml Syringe) 2.5 ml FLUSH ASDIRECTED PRN PRN Reason: Keep Vein Open Last Admin: 12/07/21 17:45 Dose: 2.5 ml Documented by: JAMIE Labs: Laboratory Tests 12/07/21 12/07/21 12/07/21 Range/Units 17:22 17:22 17:22 WBC 4.34 (4.0-11.0) K/uL RBC 4.37 (4.30-5.90) M/uL Hgb 13.1 (12.0-16.0) g/dL Hct 37.1 (36.0-46.0) % MCV 84.9 (80.0-98.0) fL MCH 30.0 (27.0-32.0) pg MCHC 35.3 (31.0-37.0) g/dL RDW Std Deviation 37.7 (28.0-62.0) fl RDW Coeff of Nanette 12 (11.0-15.0) % Plt Count 230 (150-400) K/uL MPV 9.40 (7.40-12.00) fL Neut % (Auto) 67.4 (48.0-80.0) % Lymph % (Auto) 12.9 L (16.0-40.0) % Alfalfa % (Auto) 17.1 H (0.0-15.0) % Eos % (Auto) 2.1 (0.0-7.0) % Baso % (Auto) 0.5 (0.0-1.5) % Neut # (Auto) 2.9 (1.4-5.7) K/uL Lymph # (Auto) 0.6 (0.6-2.4) K/uL Alfalfa # (Auto) 0.7 (0.0-0.8) K/uL Eos # (Auto) 0.1 (0.0-0.7) K/uL Baso # (Auto) 0.0 (0.0-0.1) K/uL Nucleated RBC % 0.0 /100WBC Nucleated RBCs # 0 K/uL Sodium 136 (136-145) mmol/L Potassium 3.8 (3.5-5.1) mmol/L Chloride 99 (98-107) mmol/L Carbon Dioxide 25.1 (21.0-32.0) mmol/L BUN 11 (7.0-18.0) mg/dL Creatinine 0.9 (0.6-1.0) mg/dL Est Cr Clr Drug Dosing 83.23 mL/min Estimated GFR (MDRD) > 60.0 ml/min Glucose 110 H (74-106) mg/dL Calcium 8.7 (8.5-10.1) mg/dL Total Bilirubin 0.3 (0.2-1.0) mg/dL AST 14 L (15-37) IU/L ALT 29 (14-63) IU/L Alkaline Phosphatase 71 (46-116) U/L Troponin I < 0.050 (0.000-0.056) ng/mL Total Protein 7.4 (6.4-8.2) g/dL Albumin 3.8 (3.4-5.0) g/dL Globulin 3.6 (2.6-4.0) g/dL Albumin/Globulin Ratio 1.1 (0.9-1.6) Influenza Type A RNA (NEGATIVE) Influenza Type B RNA (NEGATIVE) SARS-CoV-2 RNA (RAFAEL) (NEGATIVE) 12/07/21 Range/Units 17:46 WBC (4.0-11.0) K/uL RBC (4.30-5.90) M/uL Hgb (12.0-16.0) g/dL Hct (36.0-46.0) % MCV (80.0-98.0) fL MCH (27.0-32.0) pg MCHC (31.0-37.0) g/dL RDW Std Deviation (28.0-62.0) fl RDW Coeff of Nanette (11.0-15.0) % Plt Count (150-400) K/uL MPV (7.40-12.00) fL Neut % (Auto) (48.0-80.0) % Lymph % (Auto) (16.0-40.0) % Alfalfa % (Auto) (0.0-15.0) % Eos % (Auto) (0.0-7.0) % Baso % (Auto) (0.0-1.5) % Neut # (Auto) (1.4-5.7) K/uL Lymph # (Auto) (0.6-2.4) K/uL Alfalfa # (Auto) (0.0-0.8) K/uL Eos # (Auto) (0.0-0.7) K/uL Baso # (Auto) (0.0-0.1) K/uL Nucleated RBC % /100WBC Nucleated RBCs # K/uL Sodium (136-145) mmol/L Potassium (3.5-5.1) mmol/L Chloride (98-107) mmol/L Carbon Dioxide (21.0-32.0) mmol/L BUN (7.0-18.0) mg/dL Creatinine (0.6-1.0) mg/dL Est Cr Clr Drug Dosing mL/min Estimated GFR (MDRD) ml/min Glucose (74-106) mg/dL Calcium (8.5-10.1) mg/dL Total Bilirubin (0.2-1.0) mg/dL AST (15-37) IU/L ALT (14-63) IU/L Alkaline Phosphatase (46-116) U/L Troponin I (0.000-0.056) ng/mL Total Protein (6.4-8.2) g/dL Albumin (3.4-5.0) g/dL Globulin (2.6-4.0) g/dL Albumin/Globulin Ratio (0.9-1.6) Influenza Type A RNA NEGATIVE (NEGATIVE) Influenza Type B RNA NEGATIVE (NEGATIVE) SARS-CoV-2 RNA (RAFAEL) POSITIVE H (NEGATIVE) Meds: Medications Generic Name Dose Route Start Last Admin Trade Name Freq PRN Reason Stop Dose Admin Sodium Chloride 10 ml 12/07/21 17:39 12/07/21 17:45 Sodium Chloride 0.9% 10 Ml Syringe FLUSH 10 ml ASDIRECTED PRN Administration Keep Vein Open Sodium Chloride 2.5 ml 12/07/21 17:39 12/07/21 17:45 Sodium Chloride 0.9% 2.5 Ml Syringe FLUSH 2.5 ml ASDIRECTED PRN Administration Keep Vein Open Discontinued Medications Generic Name Dose Route Start Last Admin Trade Name Siobhan PRN Reason Stop Dose Admin Aspirin 324 mg 12/07/21 17:39 12/07/21 17:44 Aspirin 81 Mg Tab.Chew PO 12/07/21 17:40 324 mg ONETIME ONE Administration Departure - Departure Time of Disposition: 18:50 Disposition: Home, Self-Care 01 Condition: Good Clinical Impression: COVID-19 virus infection - Discharge Information Instructions: COVID-19 Vaccine Information, COVID-19: What to Do If You Are Sick- [facility] (02/11/2021), COVID-19 Quarantine vs. Isolation - [facility] (08/24/2021) Forms: ED Department Discharge Additional Instructions: Your are eligible for monoclonal antibodies. The paperwork's been done. When they contact you if you want them you can come and have a infusion. Return if you feel short of breath and if you think your oxygen should be checked again and may qualify for home oxygen or even possible admission. [facility] - Primary Care [address] [place] [address] [place] [address] The following information is given to patients seen in the emergency department who are being discharged to home. This information is to outline your options for follow-up care. We provide all patients seen in our emergency department with a follow-up referral. The need for follow-up, as well as the timing and circumstances, are variable depending upon the specifics of your emergency department visit. If you don't have a primary care physician on staff, we will provide you with a referral. We always advise you to contact your personal physician following an emergency department visit to inform them of the circumstance of the visit and for follow-up with them and/or the need for any referrals to a consulting specialist. The emergency department will also refer you to a specialist when appropriate. This referral assures that you have the opportunity for follow-up care with a specialist. All of these measure are taken in an effort to provide you with optimal care, which includes your follow-up. Under all circumstances we always encourage you to contact your private physician who remains a resource for coordinating your care. When calling for follow-up care, please make the office aware that this follow-up is from your recent emergency room visit. If for any reason you are refused follow-up, please contact the [facility] Emergency Department at and asked to speak to the emergency department charge nurse. Sepsis Event Note (ED) - Evaluation Sepsis Screening Result: No Definite Risk - Focused Exam Vital Signs: Vital Signs Temp Pulse Resp BP Pulse Ox 12/07/21 17:21 36.2 C 84 20 126/83 98 - My Orders Last 24 Hours: My Active Orders 12/07/21 17:39 UA W/SANDRA RFLX IF INDICATED [URIN] Stat Sodium Chloride 0.9% [Saline Flush] 10 ml FLUSH ASDIRECTED PRN Sodium Chloride 0.9% [Saline Flush] 2.5 ml FLUSH ASDIRECTED PRN Saline Lock Insert [OM.PC] Stat - Assessment/Plan Last 24 Hours: My Active Orders 12/07/21 17:39 UA W/SANDRA RFLX IF INDICATED [URIN] Stat Sodium Chloride 0.9% [Saline Flush] 10 ml FLUSH ASDIRECTED PRN Sodium Chloride 0.9% [Saline Flush] 2.5 ml FLUSH ASDIRECTED PRN Saline Lock Insert [OM.PC] Stat
[2021-12-07 18:00] LABS: BLOOD UREA NITROGEN,BUN 11 mg/dL (7.0-18.0); CARBON DIOXIDE,CO2 25.1 mmol/L (21.0-32.0); CHLORIDE,CL 99 mmol/L (98-107); GLUCOSE RANDOM 110 mg/dL (74-106); POTASSIUM,K 3.8 mmol/L (3.5-5.1); SODIUM,NA 136 mmol/L (136-145)
--- NOTE | 2021-12-07 18:12 | CR ---
INDICATION: Chest pain. TECHNIQUE: Chest 1 view. COMPARISON: None. FINDINGS: No focal consolidation, pleural effusion, or pneumothorax. Normal heart size and pulmonary vascularity. The bones are unremarkable. IMPRESSION: No acute cardiopulmonary findings. Dictated by Leeann Malcolm MD @ 12/07/2021 6:11:43 PM (Electronically Signed)
[2021-12-07 18:32] LABS: CORONAVIRUS COVID-19 NAA POSITIVE (NEGATIVE); INFLUENZA A NAA NEGATIVE (NEGATIVE); INFLUENZA B NAA NEGATIVE (NEGATIVE)
[2021-12-07 19:20] VITALS: BP 117/69; PULSE 77
== END 2021-12-07 19:20 | disposition home or self-care (01) ==
LOC: MW.ED 17:09
DX: U07.1 COVID-19 (principal)
CPT/HCPCS: 0240U; 36415; 71045; 80053; 84484; 85025; 99285; A9270

== ENCOUNTER 2025-01-01 06:38 | Day surgery (SDC) | payer BC ==
[2025-01-01] MEDS ORDERED: ceFAZolin 2 GM in Sodium Chloride 0.9% 50 ML IV ONE (06:40)
[2025-01-01] MEDS: Lactated Ringers 1,000 ML IV SCH (07:05)
[2025-01-01] MEDS ORDERED: Bupivacaine 0.25% 30 ML SDV ONE (07:13)
[2025-01-01] MEDS ORDERED: Methylene Blue 50 MG/10 ML Ampule ONE (07:13)
[2025-01-01] MEDS ORDERED: Scopalamine 1mg/3day Transdermal Patch TOP ONE (07:30)
[2025-01-01] MEDS ORDERED: Propofol 200 MG/20 ML SDV ONE (07:37)
[2025-01-01] MEDS ORDERED: Midazolam 1 MG/ML 2 ML SDV ONE (07:37)
[2025-01-01] MEDS ORDERED: fentaNYL 100 MCG/2 ML SDV ONE (07:37)
[2025-01-01] MEDS ORDERED: Ondansetron 4 MG/2 ML SDV ONE (07:39)
[2025-01-01] MEDS ORDERED: Lidocaine 1% 5 ML VIAL ONE (07:39)
[2025-01-01] MEDS ORDERED: Rocuronium 100 MG/10 ML MDV ONE (07:39)
[2025-01-01] MEDS ORDERED: Dexamethasone 4 MG/ML 5 ML MDV ONE (07:39)
[2025-01-01] MEDS ORDERED: Ropivacaine 0.5% 5 MG/ML 30 ML SDV ONE (07:42)
[2025-01-01] MEDS ORDERED: Famotidine 20 MG/2 ML SDV ONE (07:42)
[2025-01-01] MEDS ORDERED: Sodium Chloride 0.9% 40 ML ONE (07:42)
[2025-01-01] MEDS ORDERED: Metoclopramide 10 MG/2 ML SDV IVPUSH PRN (07:50)
[2025-01-01] MEDS ORDERED: Ondansetron 4 MG/2 ML SDV IVPUSH PRN ×2 (07:50→10:11)
[2025-01-01] MEDS ORDERED: Phenylephrine HCl In 0.9% NaCl 1 MG/10 ML Syringe IVPUSH PRN (07:50)
[2025-01-01] MEDS ORDERED: Naloxone 0.4 MG/ML SDV IVPUSH PRN (07:50)
[2025-01-01] MEDS ORDERED: Albuterol 0.083% 2.5 MG/3 ML Neb Soln NEB PRN (07:50)
[2025-01-01] MEDS ORDERED: ceFAZolin 2 GM Vial ONE (08:10)
[2025-01-01] MEDS ORDERED: Sugammadex Sodium 200 MG/2 ML VIAL IV ONE (08:18)
[2025-01-01] MEDS ORDERED: Tranexamic Acid 1,000 MG/10 ML Vial ONE (09:07)
[2025-01-01] MEDS ORDERED: Fluorescein 5 ML Vial ONE (09:16)
[2025-01-01] MEDS ORDERED: Furosemide 40 MG/4 ML VIAL ONE ×2 (09:20)
[2025-01-01] MEDS: HYDROmorphone 1 MG/ML Syringe IVPUSH PRN (10:06)
[2025-01-01] MEDS ORDERED: Promethazine 25 MG/ML SDV IM PRN (10:11)
[2025-01-01] MEDS ORDERED: Morphine 4 MG/ML Syringe IVPUSH PRN (10:11)
[2025-01-01] MEDS: Ketorolac 30 MG/ML SDV IVPUSH ONE (10:34)
[2025-01-01] MEDS: fentaNYL 50 MCG/ML SDV IVPUSH PRN (10:35)
[2025-01-01] MEDS: Morphine 2 MG/ML SYRINGE IVPUSH PRN (13:04)
[2025-01-01] MEDS: Ketorolac 30 MG/ML SDV IVPUSH SCH (16:31)
[2025-01-01] MEDS: Acetaminophen 325 MG Tab PO PRN (16:43)
[2025-01-02 04:21] VITALS: PULSE 74
[2025-01-02 05:56] LABS: BASOPHILS ABSOLUTE AUTO 0.02 K/uL (0.00-0.20); BASOPHILS PERCENT AUTO 0.2 % (0.0-1.0); EOSINOPHILS ABSOLUTE AUTO 0.02 K/uL (0.00-0.45); EOSINOPHILS PERCENT AUTO 0.2 % (0.0-6.0); HEMATOCRIT 32.6 % (37.0-47.0); HEMOGLOBIN 11.6 g/dL (12.0-16.0); IMMATURE GRAN ABSOLUTE AUTO 0.03 K/uL (0.00-0.05); IMMATURE GRAN PERCENT AUTO 0.3 % (0.0-0.4); LYMPHOCYTES ABSOLUTE AUTO 2.92 K/uL (1.00-4.80); LYMPHOCYTES PERCENT AUTO 29.1 % (24.0-44.0); MEAN CORPUSCULAR HEMOGLOBIN 29.9 pg (28.0-32.0); MEAN CORPUSCULAR HGB CONC 35.6 g/dL (32.0-36.0); MEAN PLATELET VOLUME 8.9 fL (9.4-12.3); MONOCYTES ABSOLUTE AUTO 0.69 K/uL (0.00-0.80); MONOCYTES PERCENT AUTO 6.9 % (0.0-8.0); NEUTROPHILS ABSOLUTE AUTO 6.34 K/uL (1.80-7.70); NEUTROPHILS PERCENT AUTO 63.3 % (41.0-71.0); PLATELET COUNT,PLT 236 K/uL (150-400); RED BLOOD CELL COUNT 3.88 M/uL (4.10-5.30); WHITE BLOOD CELL COUNT,WBC 10.02 K/uL (3.9-11.3)
[2025-01-02 06:22] LABS: CALCIUM 8.4 mg/dL (8.5-10.1); CARBON DIOXIDE,CO2 24.5 mmol/L (21.0-32.0); CREATININE 0.7 mg/dL (0.6-1.0); EST CRCL DRUG DOSING (CG) 100.01 mL/min
[2025-01-02 08:27] VITALS: BP 108/58
== END 2025-01-02 10:15 | disposition home or self-care (01) ==
LOC: MW.SDS 06:38 → MW.OB 10:12 → MW.SDS 01-02 10:15
PROVIDERS: ATTEND Obstetrics & Gynecology
DX: N72 Inflammatory disease of cervix uteri (principal); D25.9 Leiomyoma of uterus, unspecified; N85.8 Other specified noninflammatory disorders of uterus; N73.6 Female pelvic peritoneal adhesions (postinfective); Z79.899 Other long term (current) drug therapy; Z87.891 Personal history of nicotine dependence
CPT/HCPCS: 36415; 58550; 80048; 85025; 86850; 86900; 86901; A9270; J0131; J0665; J0690; J1100; J1171; J1885; J1940; J2250; J2270; J2704; J2795; J3010; J7120; 00944; 64999; J2405; J3490